=== PATIENT | male | born 1995 | race Caucasian/White ===

== ENCOUNTER → 2018-03-07 | Outpatient (CLI) | payer BC | LOC: M LRY 15:10 | DX: S69.91XA Unspecified injury of right wrist, hand and finger(s), initial encounter (principal); W18.30XA Fall on same level, unspecified, initial encounter; Y92.009 Unspecified place in unspecified non-institutional (private) residence as the place of occurrence of the external cause | CPT/HCPCS: 29125 ==

== ENCOUNTER → 2018-04-22 | Outpatient (CLI) | payer BC | LOC: M LRY 12:14 | DX: R60.0 Localized edema (principal); S99.921A Unspecified injury of right foot, initial encounter; S99.911A Unspecified injury of right ankle, initial encounter; V86.52XA Driver of snowmobile injured in nontraffic accident, initial encounter; Y92.9 Unspecified place or not applicable | CPT/HCPCS: 73610 ==

== ENCOUNTER → 2020-04-28 | Outpatient (CLI) | payer BC ==
[~2020-04-28] MED LIST: ISOVUE-370 76% 100ML VIAL As Ordered ONE
--- NOTE | 2020-04-29 08:49 | REP ---
INDICATION: ACUTE LYMPHADENITIS OF UPPER LIMB COMPARISON: None TECHNIQUE: Axial contrast enhanced images from the thoracic inlet to the upper abdomen with coronal and sagittal reformations using 75 ml Isovue 370 intravenous contrast material. This CT examination was performed using the following dose reduction techniques: Automated exposure control, adjustment of mA and/or kv according to the patient's size, and use of iterative reconstruction technique. FINDINGS: No axillary, hilar, or mediastinal adenopathy is appreciated. Further evaluation of the mediastinum demonstrates normal thoracic aorta, pulmonary vasculature, and heart/pericardium. Thyroid gland appears normal. Tracheobronchial tree is patent and normal. The bilateral lung flores are well aerated, relatively symmetric and clear. No consolidation, suspicious nodule or mass lesion. No pleural effusion. No pneumothorax. Surrounding musculoskeletal structures are intact. Limited upper abdomen is unremarkable. IMPRESSION: Normal contrast-enhanced chest CT. No acute mediastinal or pleuroparenchymal process. No adenopathy. <Electronically signed by Se Rudd > 04/29/20 [id number]
== END ==
LOC: M RAD 17:53
PROVIDERS: ATTEND Internal Medicine
DX: L04.2 Acute lymphadenitis of upper limb (principal)
CPT/HCPCS: 71260; Q9967

== ENCOUNTER → 2023-06-29 | Outpatient (REF) | payer OTHER | LOC: M LABSMT 11:42 | PROVIDERS: ATTEND Urology | DX: Z30.2 Encounter for sterilization (principal) ==